=== PATIENT | male | born 1955 | race Caucasian/White ===

== ENCOUNTER → 2017-03-27 | Outpatient (CLI) | payer OTHER ==
[~2017-03-27] MED LIST: ASPIRIN 81MG TA81 MG PO; LISINOPRIL 10MG10 MG PO
--- NOTE | 2017-03-27 10:00 | CARDIOVASCULAR REPORT ---
"Cerebrovascular Exam Indications: 785.9 Bruit. IMPRESSIONS 1. The bilateral vertebral arteries are patent with normal antegrade flow. 2. Study suggests less than 20% stenosis involving the right internal carotid artery and the left internal carotid artery. No change from the study of 18-Sep-2014. History: Risk factors: Current tobacco use. Hypertension. Carotid duplex study. Complete study and Doppler flow study including spectral analysis, color and leblanc scale imaging. Location: Vascular laboratory. Patient status: Outpatient. Tables: Arterial flow: + +--------+--------+ |Location |V sys |V ed | + +--------+--------+ |Right CCA - proximal|78.6cm/s|17.3cm/s| + +--------+--------+ |Right CCA - distal |56.6cm/s|13.4cm/s| + +--------+--------+ |Right ECA |91.9cm/s|--------| + +--------+--------+ |Right ICA - proximal|45.6cm/s|18.1cm/s| + +--------+--------+ |Right ICA - mid |127cm/s |40.1cm/s| + +--------+--------+ |Right ICA - distal |84.9cm/s|29.1cm/s| + +--------+--------+ |Right vertebral |34.6cm/s|--------| + +--------+--------+ |Left CCA - proximal |95.1cm/s|19.6cm/s| + +--------+--------+ |Left CCA - distal |46.4cm/s|10.2cm/s| + +--------+--------+ |Left ECA |111cm/s |--------| + +--------+--------+ |Left ICA - proximal |102cm/s |31.4cm/s| + +--------+--------+ |Left ICA - mid |101cm/s |33cm/s | + +--------+--------+ |Left ICA - distal |91.9cm/s|29.1cm/s| + +--------+--------+ |Left vertebral |38.5cm/s|--------| + +--------+--------+ Velocity ratios: + + + + + + | |Right, V sys|Right, V ed|Left, V sys|Left, V ed| + + + + + + |Max ICA/dist CCA|2.24 |2.99 |2.2 |3.24 | + + + + + + (Report amended ) Electronically signed by: Stuart Osborne [id number]"
== END ==
LOC: RT 07:55
DX: R09.89 Other specified symptoms and signs involving the circulatory and respiratory systems (principal)